=== PATIENT | male | born 1955 | race Caucasian/White ===

== ENCOUNTER 2017-02-01 03:30 | Inpatient (IN) | payer MEDICAID, OTHER ==
[~2017-02-01] VITALS: Ht 165.1 cm; Wt 90.7 kg
[~2017-02-01 03:30] MED LIST: ASPI81CT89 PO; CITA20TA15 PO; HYDR-4446 PO; INSU10SU8 SUBQ; LISI-420 PO; OMEP40EC1 PO; ZYL300 PO
[2017-02-01 03:42] VITALS: BP 147/70
--- NOTE | 2017-02-01 04:47 | NUR ---
PT TAKEN TO BED 5
--- NOTE | 2017-02-01 04:49 | NUR ---
61 Y/O M W/C/O PAIN TO L HIP R/T ABCESS X 1 MTH GETTING WORSE EVRY DAY. DENIES ANY REVER OR CHILLS. MED HX DM, HTN, HIGH CHOLESTEROL, GOUT, ARTHRITIS AND SHINGLES. ER MADE AWARE.
--- NOTE | 2017-02-01 05:00 | NUR ---
WOUND CULTURE OBTAINED FROM SU MARCELINO
--- NOTE | 2017-02-01 05:01 | NUR ---
BLOOD SENT TO LAB, BLOOD FOR C&S X 2 SENT TO LAB
--- NOTE | 2017-02-01 05:24 | NUR ---
Patient noted to have existing wounds upon arrival to ER. Photos taken of wound and placed in chart. Wound covered with dressing. Physician informed.
[2017-02-01] MEDS ORDERED: MEROPENEM 1,000 MG in NACL 0.9% 100 ML IV ONE (05:30)
[2017-02-01] MEDS ORDERED: ORE25 PO (05:35)
[2017-02-01] MEDS ORDERED: METF1000 PO (05:35)
[2017-02-01] MEDS ORDERED: TRAM50TA94 PO (05:35)
[2017-02-01] MEDS ORDERED: SIMV10TA1 PO (05:35)
[2017-02-01] MEDS ORDERED: MEROPENEM 1,000 MG VIAL IV ONE (05:43)
[2017-02-01] MEDS ORDERED: ONDANSETRON 4 MG/2 ML VIAL IVP ONE (05:50)
[2017-02-01] MEDS ORDERED: HYDROmorphone 1 MG/ML AMP IVP ONE (05:50)
[2017-02-01] MEDS ORDERED: NACL 0.9% 1,000 ML IV ONE (05:50)
--- NOTE | 2017-02-01 06:08 | NUR ---
PT RESTING IN BED, VSS. CURRENTLY RECEIVING IV ANTIBIOTICS AND IV FLUIDS. NO S/S OF DISTRESS NOTED SO FAR.
[2017-02-01 06:23] LABS: BASOPHILS # (AUTO) 0.3 K/uL (0.00-0.22); BASOPHILS % (AUTO) 2.3 % (0.0-2.0); EOSINOPHILS # (AUTO) 0.1 K/uL (0-0.4); HEMATOCRIT 36.7 % (36-52); HEMOGLOBIN 12.3 g/dL (12.0-18.0); LYMPHOCYTES # (AUTO) 2.6 K/uL (2.0-11.5); LYMPHOCYTES % (AUTO) 18.7 % (20.5-51.1); MEAN CORPUSCULAR HEMOGLOBIN 32 pg (27-31); MEAN CORPUSCULAR HGB CONC 34 g/dL (33-37); MEAN CORPUSCULAR VOLUME 94 fL (80-94); MONOCYTES # (AUTO) 1.5 K/uL (0.8-1.0); MONOCYTES % (AUTO) 10.9 % (1.7-9.3); NEUTROPHILS # (AUTO) 9.3 K/uL (1.8-7.7); NEUTROPHILS % (AUTO) 67.1 % (42.2-75.2); PLATELET COUNT (AUTO) 242 K/uL (140-450); RED BLOOD CELL COUNT(AUTO) 3.91 MIL/uL (4.20-6.10); RED CELL DISTRIBUTION WIDTH 12.4 % (11.6-13.7); WHITE BLOOD COUNT (AUTO) 13.8 K/uL (4.8-10.8)
[2017-02-01 06:28] LABS: LACTIC ACID 3.3 mmol/L (0.4-2.0)
--- NOTE | 2017-02-01 06:40 | NUR ---
Patient will be admitted to care of DR JAY. Admited to TELEMETRY. Will go to room 114. Belongings list completed. Report to ALEXIS DE LA CRUZ.
[2017-02-01 06:42] LABS: ALBUMIN 3.5 g/dL (3.4-5.0); ANION GAP 14.6 (8-16); CALCIUM 8.9 mg/dL (8.5-10.1); CREATININE 1.2 mg/dL (0.7-1.3); POTASSIUM 4.6 mmol/L (3.5-5.1); TOTAL BILIRUBIN 0.3 mg/dL (0.0-1.0); TOTAL PROTEIN, SERUM 7.8 g/dL (6.4-8.2)
--- NOTE | 2017-02-01 06:46 | NUR ---
PT TRASFERRED TO TELEMETRY ROOM 114 VIA [place]. ACCOMPANIED BY RN AND EMT. NO S/S OF DISTRESS NOTED UPON DC.
--- NOTE | 2017-02-01 07:30 | NUR ---
REPORT RECIEVED FROM WELDING MACHINE OPERATOR HELPER GAS RN NADIYA, PT AWAKE ALERT OX4, RESP EVEN UNLABORED, SKIN WARM DRY COLOR WNL, LEFT HIP WOUND WITH SMALL DRAINAGE, + SWELLING, +TENDERNESS, COVERED WITH DERSSING, VSS, PLAN OF CARE DISCUSSED, ALL QUESTIONS ASKED AND ANSWERED, CALL [place] WITHIN REACH SIDE RAILS UP, WILL CONTINUE TO MONITOR.
[2017-02-01 07:40] VITALS: BP 118/60
--- NOTE | 2017-02-01 08:44 | NUR ---
PATIENT HAS BEEN SCREENED AND CATEGORIZED HIGH NUTRITION RISK. PATIENT WILL BE SEEN WITHIN 1-2 DAYS OF ADMISSION. 02/01/17-02/02/[address]
[2017-02-01] MEDS ORDERED: DOCUSATE SODIUM 100 MG GELCAP PO PRN (09:05)
[2017-02-01] MEDS ORDERED: NACL 0.9% 1,000 ML IV SCH (09:05)
[2017-02-01] MEDS ORDERED: HYDROcodone/APAP 7.5/325 MG 1 TAB PO PRN (09:05)
[2017-02-01] MEDS ORDERED: ONDANSETRON 4 MG/2 ML VIAL IM/IVP PRN (09:05)
[2017-02-01] MEDS ORDERED: traMADol 50 MG TAB PO PRN (09:05)
[2017-02-01] MEDS ORDERED: ACETAMINOPHEN 325 MG TAB PO PRN (09:05)
[2017-02-01] MEDS ORDERED: DEXTROSE 50% 50 ML SYR IVP PRN ×2 (09:05→15:05)
--- NOTE | 2017-02-01 10:45 | NUR ---
DR BHATIA AT BEDSIDE TO DISCUSS PLAN OF CARE
[2017-02-01] MEDS: NACL 0.9% 1,000 ML IV SCH ×2 (11:05→20:34)
[2017-02-01 11:17] LABS: AMPHETAMINE, URINE NEG. ng/ml (NEG <=1000); BARBITURATE, URINE NEG. ng/ml (NEG <=200); BENZODIAZEPINE, URINE NEG. ng/mL (NEG <=200); CANNABINOID, URINE NEG. ng/mL (NEG <=50); COCAINE, URINE NEG. ng/mL (NEG <=300); OPIATE, URINE NEG. ng/mL (NEG <=2000); PHENCYCLIDINE SCREEN,URINE NEG. ng/mL (NEG <=25)
--- NOTE | 2017-02-01 11:46 | NUR ---
02/01/17 RD INITIAL ASSESSMENT COMPLETED PLEASE REFER TO NUTRITION ASSESSMENT UNDER CARE ACTIVITY FOR ESTIMATED NUTRITIONAL NEEDS. 1. WHEN MEDICALLY FEASIBLE, INITIATE PO DIET - 75 G CONSISTENT CARBOHYDRATE DIET 2. RECOMMEND MVI 1X/DAILY 3. RD TO FOLLOW-UP 2-3 DAYS; HIGH RISK BROOKE BUSTILLOS, JOEY
[2017-02-01] MEDS ORDERED: LIDOCAINE 1% 500 MG/50 ML VIAL INJ SCH (11:55)
[2017-02-01 12:00] VITALS: BP 124/70
[2017-02-01] MEDS: BLOOD GLUCOSE MONITORING 1 DEV DEV FS SCH ×3 (12:20→20:48)
[2017-02-01] MEDS: CLINDAMYCIN 600 MG in DEXTROSE 5% 50 ML IV SCH ×2 (12:29→20:35)
[2017-02-01] MEDS: MORPHINE SULFATE 2 MG/ML SYR IVP PRN ×2 (15:16→17:48)
--- NOTE | 2017-02-01 15:20 | NUR ---
DR BHATIA AT BEDSIDE FOR I&D, MORPHINE GIVEN FOR PAIN
[2017-02-01 16:00] VITALS: BP 120/68
--- NOTE | 2017-02-01 16:09 | NUR ---
US AT BEDSIDE FOR DOPPLER STUDY
[2017-02-01] MEDS ORDERED: BLOOD GLUCOSE MONITORING 1 DEV DEV FS SCH (16:30)
--- NOTE | 2017-02-01 17:15 | NUR ---
RT AT BEDSIDE FOR EKG
--- NOTE | 2017-02-01 17:20 | NUR ---
PT C/O PAIN 01/30, TOO SOON FOR MORPHINE, TRAMADOL OFFERED BUT STATES 50MG IS TOO LITTLE, REFUSES TRAMADOL, PT STATES HE PREFERS TO WAIT FOR TIME FOR MORPHINE. WILL CONTINUE TO MONITOR
[2017-02-01] MEDS: metFORMIN 500 MG TAB PO SCH (17:26)
[2017-02-01] MEDS: INSULIN LISPRO SLIDING SCALE 100 UNITS/ML VIAL SUBQ PRN ×2 (17:47→20:49)
--- NOTE | 2017-02-01 18:00 | NUR ---
PT MEDICATED FOR PAIN, 4U INSULIN GIVEN FOR BS 209, PT SITTING UP EATING DINNER, PLAN OF CARE DISCUSSED PT VERBALIZED FUNDERSTANDING, WILL CONTINUE TO MONITOR
--- NOTE | 2017-02-01 19:10 | NUR ---
RECEIVED REPORT FROM BIRDIE MCPHERSON AT BEDSIDE. INITIAL ASSESSMENT COMPLETED. PT AAOX4. PT HAS IV ON LEFT AC; ASYMPTOMATIC, PATENT AND INTACT INFUSING FLUIDS WELL. PT HAS LEFT HIP ABSCESS S/P I & D. CHANGED DRESSING PT TOLERATED IT WELL. PT KYRGYZ SPEAKING. PT DENIES DISCOMFORT OR PAIN. EXPLAINED PLAN OF CARE TO PT AND HE VERBALIZES UNDERSTANDING. WILL CONTINUE TO MONITOR PT.
--- NOTE | 2017-02-01 19:35 | NUR ---
REPORT GIVEN TO INSPECTOR BOILER NURSE, PT IN STABLE CONDITION.
[2017-02-01 20:00] VITALS: BP 120/78
--- NOTE | 2017-02-01 20:20 | NUR ---
PROVIDED PT WITH SCDS, EDUCATION PROVIDED ON BENEFIT OF WEARING SCDS. WILL CONTINUE TO MONITOR PT.
[2017-02-01] MEDS: INSULIN NPH HUM/REG INSULIN HM 100 UNIT/ML 10 ML VIAL SQ SCH (20:47)
--- NOTE | 2017-02-01 20:54 | NUR ---
PT TOLERATED 2100 MEDS WELL. WILL CONTINUE TO MONITOR PT.
[2017-02-01] MEDS ORDERED: SIMVASTATIN 10 MG TAB PO SCH (21:00)
--- NOTE | 2017-02-01 22:20 | NUR ---
CHANGED PT'S DRESSING, PT TOLERATED IT WELL. WILL CONTINUE TO MONITOR PT.
[2017-02-02] VITALS: BP 125/73
--- NOTE | 2017-02-02 00:05 | NUR ---
PT'S VS STABLE. PT DENIES PAIN. PT REQUESTING A BLANKET, WILL PROVIDE WITH NEEDS. CALL LIGHT WITHIN REACH.
--- NOTE | 2017-02-02 02:48 | NUR ---
IV PUMP ALARMING; FLUSHED AND INFUSING FLUIDS WELL. WILL CONTINUE TO MONITOR PT.
[2017-02-02] MEDS: NACL 0.9% 1,000 ML IV SCH ×2 (03:45→12:05)
[2017-02-02 04:00] VITALS: BP 128/72
--- NOTE | 2017-02-02 04:22 | NUR ---
CHECKED ON PT. 0400 VS STABLE. PT DENIES DISCOMFORT OR PAIN. CALL LIGHT WITHIN REACH.
--- NOTE | 2017-02-02 04:46 | NUR ---
[facility] COLLECTED AND TAKEN TO LAB. WILL CONTINUE TO MONITOR PT.
[2017-02-02] MEDS: CLINDAMYCIN 600 MG in DEXTROSE 5% 50 ML IV SCH ×2 (05:06→12:00)
--- NOTE | 2017-02-02 05:12 | NUR ---
0500 CLEOCIN INFUSING NOW. WILL CONTINUE TO MONITOR PT.
[2017-02-02 06:18] LABS: BASOPHILS # (AUTO) 0.2 K/uL (0.00-0.22); BASOPHILS % (AUTO) 1.6 % (0.0-2.0); EOSINOPHILS # (AUTO) 0.2 K/uL (0-0.4); HEMATOCRIT 33.3 % (36-52); HEMOGLOBIN 11.3 g/dL (12.0-18.0); LYMPHOCYTES # (AUTO) 2.3 K/uL (2.0-11.5); LYMPHOCYTES % (AUTO) 22.9 % (20.5-51.1); MEAN CORPUSCULAR HEMOGLOBIN 32 pg (27-31); MEAN CORPUSCULAR HGB CONC 34 g/dL (33-37); MEAN CORPUSCULAR VOLUME 94 fL (80-94); MONOCYTES # (AUTO) 0.8 K/uL (0.8-1.0); NEUTROPHILS # (AUTO) 6.4 K/uL (1.8-7.7); NEUTROPHILS % (AUTO) 65.5 % (42.2-75.2); PLATELET COUNT (AUTO) 231 K/uL (140-450); RED BLOOD CELL COUNT(AUTO) 3.52 MIL/uL (4.20-6.10); RED CELL DISTRIBUTION WIDTH 12.6 % (11.6-13.7); WHITE BLOOD COUNT (AUTO) 9.9 K/uL (4.8-10.8)
[2017-02-02] MEDS: BLOOD GLUCOSE MONITORING 1 DEV DEV FS SCH ×3 (06:23→17:00)
[2017-02-02] MEDS: INSULIN LISPRO SLIDING SCALE 100 UNITS/ML VIAL SUBQ PRN ×3 (06:23→17:51)
[2017-02-02] MEDS: metFORMIN 500 MG TAB PO SCH (06:31)
[2017-02-02 06:32] LABS: ANION GAP 10.1 (8-16); CALCIUM 8.5 mg/dL (8.5-10.1); CARBON DIOXIDE 29.9 mmol/L (21-32)
[2017-02-02 06:38] LABS: MAGNESIUM 1.6 mg/dL (1.8-2.4); PHOSPHORUS 4.1 mg/dL (2.5-4.9)
--- NOTE | 2017-02-02 07:10 | NUR ---
RECEIVED REPORT FROM NIGHT NURSE, PT IS AAOX4 CHINESE SPEAKING, ON ROOM AIR, IV TO LEFT AC INFIXING WELL, LEFT HIP ABSCESS S/P I&D WITH DRESSING DRY AND INTACT. INITIAL ASSESSMENT COMPLETED, REVIEWED PLAN OF CARE WITH PT, PT VERBALIZED UNDERSTANDING. ALL SAFETY PRECAUTIONS MET. ALL NEEDS MET. CALL LIGHT WITHIN REACH. WILL CONTINUE TO MONITOR.
--- NOTE | 2017-02-02 07:10 | NUR ---
ENDORSED PLAN OF CARE TO DAY SHIFT NURSE. PT IN STABLE CONDITION.
[2017-02-02 08:00] VITALS: BP 137/64
[2017-02-02] MEDS ORDERED: PANTOPRAZOLE 40 MG TABEC PO SCH ×2 (08:11→09:00)
[2017-02-02] MEDS ORDERED: ASPIRIN 81 MG TAB.CHEW PO SCH (09:00)
[2017-02-02] MEDS ORDERED: ALLOPURINOL 300 MG TAB PO SCH (09:00)
[2017-02-02] MEDS: INSULIN NPH HUM/REG INSULIN HM 100 UNIT/ML 10 ML VIAL SQ SCH (09:00)
[2017-02-02] MEDS ORDERED: LEVOFLOXACIN 500 MG/D5W PREMIX 100 ML IV SCH (09:00)
[2017-02-02] MEDS ORDERED: HYDROCHLOROTHIAZIDE 25 MG TAB PO SCH (09:00)
[2017-02-02] MEDS ORDERED: NON-FORMULARY ITEM (Omeprazole* (Prilosec*) 20 MG) PO SCH (09:00)
[2017-02-02] MEDS ORDERED: CITALOPRAM 20 MG TAB PO SCH (09:00)
--- NOTE | 2017-02-02 09:42 | NUR ---
DUE MEDICATION GIVEN, PT TOLERATED WELL. ALL NEEDS MET, WILL CONTINUE TO MONITOR.
[2017-02-02] MEDS ORDERED: MAGNESIUM OXIDE 400 MG TAB PO SCH ×3 (11:11→21:00)
[2017-02-02] MEDS: MORPHINE SULFATE 2 MG/ML SYR IVP PRN (11:53)
[2017-02-02 12:00] VITALS: BP 134/77
--- NOTE | 2017-02-02 12:01 | NUR ---
DUE MEDICATIONS GIVEN, PT C/O PAIN 10/10 MEDICATED PER MD ORDER. WILL CONTINUE TO MONITOR.
--- NOTE | 2017-02-02 14:25 | NUR ---
LEFT HIP DRESSING CHANGED, ALL NEEDS MET. WILL CONTINUE TO MONITOR.
[2017-02-02 16:00] VITALS: BP 138/76
[2017-02-02] MEDS ORDERED: metFORMIN 500 MG TAB PO SCH (17:00)
--- NOTE | 2017-02-02 17:53 | NUR ---
DUE MEDICATION GIVEN,PT TOLERATED WELL. ALL NEEDS MET. WILL CONTINUE TO MONITOR.
--- NOTE | 2017-02-02 18:30 | NUR ---
PT WANTS TO GO AMA, EDUCATED PT ON RISK OF LEAVING AGAINS MEDICAL ADVICE. MD AWARE AND IN TO SEE PT.
--- NOTE | 2017-02-02 18:39 | NUR ---
IV REMOVED TIP INTACT, PRESCRIPTION GIVEN. AWAITING FOR FRIEND TO PICK PT UP
--- NOTE | 2017-02-02 18:59 | NUR ---
PT WAS WALKED OUT TO FRONT LOBBY.
[2017-02-03] MEDS ORDERED: PANTOPRAZOLE 40 MG TABEC PO SCH (06:30)
[2017-02-03] MEDS ORDERED: PIOGLITAZONE 30 MG TAB PO SCH (09:00)
== END 2017-02-02 19:00 | disposition left against medical advice (07) | DRG 720 ==
LOC: MED 03:30 → MTU 07:46
PROVIDERS: ADMIT Family Medicine; ATTEND Family Medicine
PROC: 0Y9D0ZZ Drainage of Left Upper Leg, Open Approach (ICD-10-PCS; principal; 2017-02-02)
DX: A41.9 Sepsis, unspecified organism (principal); D68.59 Other primary thrombophilia; E11.65 Type 2 diabetes mellitus with hyperglycemia; E83.42 Hypomagnesemia; L02.416 Cutaneous abscess of left lower limb; I10 Essential (primary) hypertension; R65.20 Severe sepsis without septic shock; E66.9 Obesity, unspecified; M19.90 Unspecified osteoarthritis, unspecified site; M10.9 Gout, unspecified; F32.9 Major depressive disorder, single episode, unspecified; Z60.2 Problems related to living alone; K21.9 Gastro-esophageal reflux disease without esophagitis; Z53.21 Procedure and treatment not carried out due to patient leaving prior to being seen by health care provider; Z79.82 Long term (current) use of aspirin; Z68.33 Body mass index [BMI] 33.0-33.9, adult; Z79.899 Other long term (current) drug therapy; Z79.4 Long term (current) use of insulin
CPT/HCPCS: 36415; 73502; 80048; 80053; 80305; 82550; 82948; 83036; 83605; 83735; 84100; 85025; 87040; 87070; 87075; 87081; 87186; 93005; 93925; 93970; 96365; 96375; 99285; J1170; J1815; J1956; J2001; J2185; J2270; J2405; J3490; J7030; J7060; Q0092

== ENCOUNTER 2018-09-24 05:59 | Emergency (ER) | payer OTHER ==
[~2018-09-24] VITALS: Ht 170.2 cm; Wt 89.5 kg
[~2018-09-24 05:59] MED LIST changes: +ACET-8386 PO; +ASPI-1718 PO; -ASPI81CT89 PO; -CITA20TA15 PO; -HYDR-4446 PO; -INSU10SU8 SUBQ; -LISI-420 PO; +METF1000 PO; +NOV7030 SUBQ; +ORE25 PO; +SIMV10TA1 PO; +TRAM50TA1 PO
[2018-09-24 06:03] VITALS: BP 159/103
--- NOTE | 2018-09-24 06:03 | NUR ---
TO ER BED 12
--- NOTE | 2018-09-24 06:10 | NUR ---
PT BIB FOR TOOTH PAIN X1 DAY. PT REPORTS CONSTANT 10/10 NON-RADIATING SHARP PAIN IN L UPPER MOUTH/BACK MOLAR. VISIBLE HOLE IN TOOTH. VSS. ER TO SEE PT. MEDHX: HTN, DM II
[2018-09-24] MEDS ORDERED: MORPHINE SULFATE 4 MG/ML SYR IM ONE (06:30)
[2018-09-24] MEDS ORDERED: MORPHINE SULFATE 4 MG/ML SYR ONE (06:49)
[2018-09-24 07:04] VITALS: BP 159/103
--- NOTE | 2018-09-24 07:04 | NUR ---
Patient discharged with v/s stable. Written and verbal after care instructions given and explained. Patient alert, oriented and verbalized understanding of instructions. Ambulatory with steady gait. All questions addressed prior to discharge. ID band removed. Patient advised to follow up with PMD. Rx of MOTRIN, PENICILLIN VK, AND NORCO given. Patient educated on indication of medication including possible reaction and side effects. Opportunity to ask questions provided and answered.
== END 2018-09-24 07:04 | disposition home or self-care (01) ==
LOC: MED 05:59
DX: K04.7 Periapical abscess without sinus (principal); E11.9 Type 2 diabetes mellitus without complications; K21.9 Gastro-esophageal reflux disease without esophagitis; I10 Essential (primary) hypertension; Z79.4 Long term (current) use of insulin; Z79.82 Long term (current) use of aspirin; Z79.899 Other long term (current) drug therapy
CPT/HCPCS: 96372; 99283; J2270

== ENCOUNTER 2019-05-31 21:32 | Emergency (ER) | payer OTHER ==
[~2019-05-31] VITALS: Ht 162.6 cm; Wt 86.2 kg
[~2019-05-31 21:32] MED LIST changes: -OMEP40EC1 PO; +OMEP40EC24 PO
[2019-05-31 21:35] VITALS: BP 170/88
--- NOTE | 2019-05-31 21:38 | NUR ---
TO LOBBY A/W BED VIA WHEELCHAIR
--- NOTE | 2019-05-31 23:44 | NUR ---
PT BROUGHT TO BED 1 VIA WHEELCHAIR
[2019-06-01] MEDS ORDERED: KETOROLAC 30 MG/ML VIAL IM ONE (00:30)
[2019-06-01] MEDS ORDERED: HYDROcodone/APAP 5/325 MG 1 TAB TAB PO ONE (01:00)
--- NOTE | 2019-06-01 01:00 | NUR ---
64 YO M BIB SELF PRESENTS TO ED C/O 04/02 RIGHT KNEE PAIN X 10 HOURS EAR NOSE AND THROAT SPECIALIST. PT STATES HE WAS RECENTLY DIAGNOSED WITH ARTHRITIS BY PMD. WAS REFERRED TO PHYSICAL THERAPY; PT REPORTS NO RELIEF. PT DENIES RECENT TRAUMA/INJURY. PT UNABLE TO AMBULATE AT THIS TIME; REQUIRES WC ASSISTANCE. NO DEFORMITIES NOTED. PMH-- ARTHRITIS, DM, HTN, GERD
--- NOTE | 2019-06-01 01:11 | NUR ---
PT WAS PLACED ON A RIGHT KNEE IMMOBOLIZER SIZE 20 INCH, CMS WAS CHECKED BEFORE N AFTER, IMMOBOLIZER WAS FITTED TO PT LEG, PT REFUSED CRUTCHES STATES HE HAS SOME AT HOME ALL READY AND DID NOT NEED THEM.
[2019-06-01 01:18] VITALS: BP 140/77
--- NOTE | 2019-06-01 01:18 | NUR ---
Patient discharged with v/s stable. Written and verbal after care instructions given and explained. Patient alert, oriented and verbalized understanding of instructions. Ambulatory with steady gait. All questions addressed prior to discharge. ID band removed. Patient advised to follow up with PMD. Rx of Naprosyn and [place] given. Patient educated on indication of medication including possible reaction and side effects. Opportunity to ask questions provided and answered.
== END 2019-06-01 01:18 | disposition home or self-care (01) ==
LOC: MED 21:32
DX: M17.11 Unilateral primary osteoarthritis, right knee (principal); E11.9 Type 2 diabetes mellitus without complications; K21.9 Gastro-esophageal reflux disease without esophagitis; I10 Essential (primary) hypertension; Z79.899 Other long term (current) drug therapy; Z88.5 Allergy status to narcotic agent; Z79.82 Long term (current) use of aspirin; Z79.4 Long term (current) use of insulin
CPT/HCPCS: 29505; 73562; 96372; 99283; J1885; Q0092

== ENCOUNTER 2020-03-14 16:31 | Emergency (ER) | payer OTHER ==
[~2020-03-14] VITALS: Ht 160 cm; Wt 77.1 kg
[~2020-03-14 16:31] MED LIST changes: -ASPI-1718 PO; +ASPI-1822 PO
[2020-03-14 16:36] VITALS: BP 159/91
--- NOTE | 2020-03-14 16:50 | NUR ---
C/O PAIN RIGHT UPPER GUM S/P RIGHT UPPER TOOTH EXTRACTION X 4 HOUR AGO. BLOOD SUGAR 324 , BP 159/91 AT THIS TIME. MED HX: DM. HTN
--- NOTE | 2020-03-14 16:50 | NUR ---
Note herminio in EDM - 03/14/20 at 1711 by [email or web address] 65/M BIB SELF C/O RIGHT UPPER TOOTHACHE X TODAY. BLOOD SUGAR 324 , BP 159/91 AT THIS TIME. MED HX: DM. HTN
--- NOTE | 2020-03-14 16:53 | NUR ---
AMERICO APPIAH EVALUATING PT AT BEDSIDE.
[2020-03-14] MEDS ORDERED: MORPHINE SULFATE 4 MG/ML SYR IM ONE (16:55)
[2020-03-14] MEDS ORDERED: HYDROcodone/APAP 5/325 MG 1 TAB TAB PO ONE (18:00)
[2020-03-14 18:05] VITALS: BP 159/91
== END 2020-03-14 18:05 | disposition home or self-care (01) ==
LOC: MED 16:31
DX: G89.18 Other acute postprocedural pain (principal); K08.89 Other specified disorders of teeth and supporting structures; E11.9 Type 2 diabetes mellitus without complications; K21.9 Gastro-esophageal reflux disease without esophagitis; Z79.899 Other long term (current) drug therapy; Z79.84 Long term (current) use of oral hypoglycemic drugs
CPT/HCPCS: 82948; 96372; 99283; J2270

== ENCOUNTER 2020-07-24 09:44 | Emergency (ER) | payer OTHER ==
[~2020-07-24] VITALS: Ht 160 cm; Wt 77.1 kg
[2020-07-24 09:48] VITALS: BP 124/79
--- NOTE | 2020-07-24 11:00 | NUR ---
C/O NECK, R SHOULDER, R ARM, R LEG PAIN& NUMBNESS S/P FALL AT BATHROOM X 3 DAYS AGO. PMH: HTN,HYSTERECTOMY
[2020-07-24 13:13] VITALS: BP 124/79
--- NOTE | 2020-07-24 13:14 | NUR ---
Patient discharged with v/s stable. Written and verbal after care instructions given and explained. Patient alert, oriented and verbalized understanding of instructions. Ambulatory with steady gait. All questions addressed prior to discharge. ID band removed. Patient advised to follow up with PMD. Rx of Zofran 8mg given. Patient educated on indication of medication including possible reaction and side effects. Opportunity to ask questions provided and answered.
== END 2020-07-24 13:14 | disposition home or self-care (01) ==
LOC: MED 09:44
DX: K21.9 Gastro-esophageal reflux disease without esophagitis (principal); E11.9 Type 2 diabetes mellitus without complications; I10 Essential (primary) hypertension; Z98.890 Other specified postprocedural states; Z79.899 Other long term (current) drug therapy
CPT/HCPCS: 99283

== ENCOUNTER 2022-03-07 00:35 | Emergency (ER) | payer OTHER ==
[~2022-03-07] VITALS: Ht 167.6 cm; Wt 88.9 kg
[~2022-03-07 00:35] MED LIST changes: +HYDR-4004 PO; +METF-1274 PO; -METF1000 PO; -ORE25 PO; +SIMV-371 PO; -SIMV10TA1 PO
[2022-03-07 00:43] VITALS: BP 136/78
--- NOTE | 2022-03-07 00:46 | NUR ---
PT AMBULATED TO BED#2
--- NOTE | 2022-03-07 00:51 | NUR ---
RECEIVED IN BED 2 WITH C/O RASH TO NECK X12 YEARS. NEW ONSET OF BURNING. USES TRIAMCINOLONE AND QUADRIDERM WITH NO RELIEF. HX:KATELYN AYALAA
[2022-03-07 01:15] VITALS: BP 136/78
--- NOTE | 2022-03-07 01:16 | NUR ---
Patient discharged with v/s stable. Written and verbal after care instructions given and explained. Patient verbalized understanding. Ambulatory with steady gait. All questions addressed prior to discharge. Advised to follow up with PMD.
--- NOTE | 2022-03-07 01:16 | NUR ---
Patient being evaluated by physician at bedside.
[2022-03-07] MEDS ORDERED: KETO2CRE3 TP ×2 (01:34→01:47)
[2022-03-07] MEDS ORDERED: CEPH-588 PO ×2 (01:35→01:47)
== END 2022-03-07 01:45 | disposition home or self-care (01) ==
LOC: MED 00:35
DX: R21 Rash and other nonspecific skin eruption (principal); E11.9 Type 2 diabetes mellitus without complications; I10 Essential (primary) hypertension; K21.9 Gastro-esophageal reflux disease without esophagitis; Z79.4 Long term (current) use of insulin; Z79.899 Other long term (current) drug therapy
CPT/HCPCS: 99283

== ENCOUNTER 2023-03-02 23:25 | Emergency (ER) | payer OTHER ==
[~2023-03-02] VITALS: Ht 165.1 cm; Wt 85.7 kg
[~2023-03-02 23:25] MED LIST changes: -ACET-8386 PO; +ACET-8905 PO; +CEPH-588 PO; +KETO2CRE3 TP; +TRAM-748 PO; -TRAM50TA1 PO
[2023-03-02 23:40] VITALS: BP 139/87; PULSE 90; RESP 17; TEMP 98; O2SAT 98
[2023-03-03 00:30] VITALS: BP 142/91; PULSE 85; RESP 20; O2SAT 98
[2023-03-03] MEDS ORDERED: predniSONE 20 MG TAB PO ONE (00:50)
[2023-03-03] MEDS ORDERED: PRED20TA5 PO (01:19)
== END 2023-03-03 01:29 | disposition home or self-care (01) ==
LOC: MED 23:25
DX: R21 Rash and other nonspecific skin eruption (principal); G89.29 Other chronic pain; R10.13 Epigastric pain; E11.9 Type 2 diabetes mellitus without complications; K21.9 Gastro-esophageal reflux disease without esophagitis; I10 Essential (primary) hypertension; Z79.899 Other long term (current) drug therapy; Z79.2 Long term (current) use of antibiotics; Z79.82 Long term (current) use of aspirin; Z79.4 Long term (current) use of insulin
CPT/HCPCS: 93005; 99283; J7512